=== PATIENT | male | born 1965 | race Hispanic/Latino ===

== ENCOUNTER 2022-03-17 19:00 | Emergency (ER) | payer BC ==
[2022-03-17] MEDS ORDERED: Neomycin-Polymyxin-Hc 7.5 ML BOT ONE (20:08)
[2022-03-17] MEDS ORDERED: predniSONE 20 MG TAB ONE (20:08)
== END 2022-03-17 20:15 | disposition home or self-care (01) ==
LOC: BURERS 19:00
DX: J30.9 Allergic rhinitis, unspecified (principal); H10.13 Acute atopic conjunctivitis, bilateral
CPT/HCPCS: 71046; J7512